=== PATIENT | female | born 2000 | race Caucasian/White ===

== ENCOUNTER 2019-04-11 15:36 | Emergency (ER) | payer BC, OTHER, SELFPAY ==
--- NOTE | ~2019-04-11 | XR_ITS ---
EXAMINATION: XR chest 2V 04/11/2019 17:00 INDICATION: Fever. Cough. Flu. PROCEDURE: 2 view chest COMPARISON: No prior studies for comparison. FINDINGS: The lungs are clear. The cardiomediastinal silhouette is within normal limits. There are no pleural effusions. There is no pneumothorax suspected. IMPRESSION: 1: NO ACUTE CARDIOPULMONARY DISEASE. Reviewed, dictated and finalized at location A. SALESPERSON
--- NOTE | ~2019-04-11 | CT_ITS ---
EXAMINATION: CTA chest PE protocol DATE: 04/11/2019 17:46 LUMBER MOVER INDICATION: Recurrent syncope TECHNIQUE: Computed tomographic angiography (CTA) of the chest was performed with 100 mL Omnipaque-35 0 intravenous contrast. The dose-length product was 387.47 mGy-cm. Maximum intensity projection 3D-re constructions of the aorta and other arteries were constructed by the technologist on a separate work station. Automated exposure control and iterative reconstruction technique were employed. COMPARISON: Chest dated 04/11/2019 FINDINGS: The study is technically limited due to timing of contrast bolus for evaluation of the segm ental and subsegmental pulmonary arteries. No large central pulmonary embolism is identified. In dalia tion there is streak artifact limiting evaluation of the right upper lobe pulmonary arteries. There i s residual thymic tissue. No endobronchial lesions. No pneumothorax. No focal airspace consolidation. No significant bone or joint abnormality. Visualized aspects of the upper abdomen are unremarkable. IMPRESSION: 1. No large central pulmonary embolism. Study limited for evaluation of segmental and subsegmental pu lmonary arteries due to timing of contrast bolus and streak artifact. 2: No acute airspace disease. Reviewed, dictated and finalized at location A. ER MOVER IMPRESSION: 1. No large central pulmonary embolism. Study limited for evaluation of segment al and subsegmental pulmonary arteries due to timing of contrast bolus and stre ak artifact. 2: No acute airspace disease.
[2019-04-11 15:40] VITALS: BP 117/66; PULSE 121; RESP 19; TEMP 38.1; O2SAT 100
--- NOTE | 2019-04-11 15:45 | PC.NURSE ---
During triage, patient had syncopal episode,Mother states that patient has recent MRI for syncopal episodes but doctors are unsure of why she is having them.
[2019-04-11 15:54] VITALS: PULSE 132
--- NOTE | 2019-04-11 15:56 | ECG_ITS ---
Measurements Intervals [place] Rate: 136 P: 24 IL: 148 QRS: -6 QRSD: 87 T: -4 QT: 331 QTc: 498 Interpretive Statements SINUS TACHYCARDIA NONSPECIFIC T-WAVE ABNORMALITY- INFERIOR LEADS ABNORMAL ECG Electronically Signed On 04-11-2019 21:07:26 UTILIZATION REVIEW RN by Phong Harvey D.O.
--- NOTE | 2019-04-11 16:24 | ED.URI ---
HPI - URI/Sore Throat General Chief Complaint: Syncope Stated Complaint: Cold sx, fever Time Seen by Provider: 04/11/19 16:26 Source: patient Mode of arrival: ambulatory Limitations: no limitations History of Present Illness HPI Narrative: A 18 y/o female presents to the ED with c/o syncope. Pt states that for the past year she has been randomly syncopizing 5-7 times a week. She notes that the syncopal episodes stopped for a couple of months, but they have become more frequent the past couple months. Pt adds that she has seen her PCP for the syncopal episodes and had an EKG and MRI done on 04/09/19, which both came back normal. She communicates that she has an appointment with Dr. Snider, a neurologist, in 2 weeks. Pt states that she has tunnel vision and blurry vision prior to her syncopal episodes. She notes that she normally can speak and is not confused after her syncopal episodes. Today the patient syncopized twice and decided to come to the ED. Pt reports dizziness, fever, cough, MCKENNA, and SOB, but denies CP, ABD pain, sore throat, otalgia, congestion, numbness, and lightheadedness. She was diagnosed with Influenza in the ED. Pt discontinued her control 1 week ago after her PCP advised her too. elicited complaint: other (Syncope) Onset (ago): year(s) (1) Consistency: intermittent Severity: similar to previous episodes Associated symptoms: fever, cough, shortness of breath and other (Dizziness, MCKENNA, blurry vision, tunnel vision) Related Data Home Medications Medication Instructions Recorded Confirmed metformin 500 mg PO DAILY 04/11/19 Allergies Allergy/AdvReac Type Severity Reaction Status Date / Time No Known Allergies Allergy Verified 04/11/19 15:47 Review of Systems Review of Systems: Narrative: CONSTITUTIONAL: Denies chills or sweats. Reports fever. EYES: Denies visual changes, redness, or discharge. ENT: Reports rhinorrhea and congestion. Reports blurry vision and tunnel vision. CARDIOVASCULAR: Denies chest pain, palpitations, or edema. RESPIRATORY: Reports cough and dyspnea. GASTROINTESTINAL: Denies abdominal pain, nausea, vomiting, or diarrhea. GENITOURINARY: Denies dysuria or hematuria. SKIN: Denies rash or itching. MUSCULOSKELETAL: Denies back pain, joint pain, or myalgia. NEUROLOGIC: Denies numbness, lightheadedness, or weakness. Reports headache, syncope, and dizziness. PMFSH Past Medical History Medical History (Updated 04/11/19 @ 18:46 by Lamar Ardon MD) Syncopal episodes Surgical History Surgical History (Updated 04/11/19 @ 17:02 by Sana Day) No pertinent past surgical history Social History Social History (Updated 04/11/19 @ 17:02 by Sana Day) Smoking status: Never smoker Gender identity (if verbalized by the patient): Female Exam Narrative: Exam Narrative: GENERAL: Well-appearing, well-nourished, and in no acute distress. HEAD: Normocephalic, atraumatic. EYES: PERRLA and EOMI. ENT: Nares clear, +rhinorrea, no epistaxis. Mucous membranes moist. NECK: Supple. CHEST: Clear to auscultation. No respiratory distress. HEART: Tachycardic with regular rhythm. No murmur heard. Normal peripheral pulses. ABDOMEN: Soft, nontender, nondistended, normal active bowel sounds. EXTREMITIES: Normal range of motion. No edema. SKIN: Warm, dry, no rash. NEURO: No focal deficits. Alert and oriented X3. Course Course Emergency Course: Patient presented for evaluation of cough and cold symptoms as well as fever and then recurrent episodes of syncope. Patient has a longstanding history of this, states that she has been worked up by her primary care provider has had a normal MRI, and is set to follow-up with a neurologist. At the time of our assessment, patient is neurologically intact without any neurological deficits. Patient is tachycardic, she has influenza and fever. Patient without urinary symptoms or abdominal pain. No vomiting. No prodromal symptoms prior to the syncope such as ch
[2019-04-11 16:58] LABS: Basophils Percent Auto 0.1 % (0.2-1.2); Eosinophils Percent Auto 0.1 % (0-4.4); Hematocrit 40.6 % (37.0-47.0); Hemoglobin 13.2 g/dL (12.0-15.0); Immature Granulocyte Absolute 0.02 K/mm3 (0.00-0.031); Immature Granulocyte Percent A 0.2 % (0-0.5); Lymphocytes Percent Auto 6.2 % (18.3-44.2); Mean Corpuscular HGB Conc 32.5 g/dl (32-36); Mean Platelet Volume 11.1 fl (7.4-10.4); Monocytes Absolute Auto 0.8 K/mm3 (0.1-0.6); Monocytes Percent Auto 10.2 % (2.6-8.5); Neutrophils Absolute Auto 6.8 K/mm3 (1.3-6.7); Neutrophils Percent Auto 83.2 % (45.5-73.1); Platelet Count Result 220 k/mm3 (150-375); Red Blood Count 4.72 M/mm3 (4.2-5.4); Red Cell Distribution Width 13.3 % (11.5-14.5); White Blood Count 8.1 K/mm3 (4.5-10.0)
[2019-04-11] MEDS: ACETAMINOPHEN 500 MG TABLET 1000 MG PO (17:04)
[2019-04-11] MEDS: ONDANSETRON INJ 4 MG/2 ML VIAL IV PUSH (17:05)
[2019-04-11] MEDS: SODIUM CHLORIDE 0.9% IV 1,000 ML 999 ML IV CONT ×2 (17:05)
[2019-04-11 17:06] LABS: INR 0.9; Prothrombin Time 12.3 Seconds (11.1-14.7)
[2019-04-11] MEDS: KETOROLAC 15 MG/ML VIAL (*BKC) IV PUSH (17:08)
[2019-04-11 17:13] LABS: Blood Urea Nitrogen 8 mg/dL (8-21); Calcium 9.7 mg/dL (8.9-10.7); Carbon Dioxide 23 mmol/L (22-30); Chloride 102 mmol/L (98-107); Estimated Glomerular Filt Rate > 60; Glucose 107 mg/dL (65-105); Potassium 3.8 mmol/L (3.4-5.0); Sodium 139 mmol/L (134-143)
[2019-04-11 17:23] LABS: Troponin I < 0.012 ng/mL (0.000-0.034)
[2019-04-11 18:38] VITALS: BP 124/63; PULSE 114; RESP 20; TEMP 37.4; O2SAT 100
== END 2019-04-11 19:03 | disposition home or self-care (01) ==
PROVIDERS: Emergency Provider Emergency Medicine
DX: J10.1 Influenza due to other identified influenza virus with other respiratory manifestations (principal); R55 Syncope and collapse; R00.0 Tachycardia, unspecified; R94.31 Abnormal electrocardiogram [ECG] [EKG]
CPT/HCPCS: 36415; 71046; 71275; 80048; 84484; 85025; 85610; 85730; 87804; 93005; 96361; 96374; 96375; 99284; A9270; J1885; J2405; J7030; Q9967

== ENCOUNTER 2020-04-16 21:35 | Observation (INO) | payer BC, OTHER, SELFPAY ==
[2020-04-16] VITALS (9 sets, daily range): BP systolic 92–124; BP diastolic 50–74; PULSE 77–120; BMI 33.5
--- NOTE | 2020-04-16 21:55 | PC.NURSE ---
Patient states she noted swelling of lower extremities.today. States went to [facility] for blood pressure check and blood pressure was 170's/80's
--- NOTE | 2020-04-16 22:16 | PC.NURSE ---
Dr. James notified of pt admission and assessment. Orders received.
--- NOTE | 2020-04-16 22:25 | PC.NURSE ---
Attempt to do SVE. Pt does not tolerate exam and unable to proceed. Pt places legs back together and tightens vaginal muscles. Contractions have decreased. Pt states she does not feel them.
[2020-04-16 23:46] LABS: Add Urine Microscopic? YES; Appearance Urine Cloudy (Clear); Bacteria Urine Trace /hpf; Bilirubin Urine Negative (Negative); Blood Urine Negative (Negative); Color Urine Yellow (Yellow); Glucose Urine UA Negative (Negative); Ketones Urine Negative (Negative); Leukocyte Esterase Ur 3+ LEU/UL (NEGATIVE); Mucus Urine Rare /lpf; Nitrate Urine Negative (Negative); Protein Urine Negative (Negative); Specific Grav Ur 1.008 (1.001-1.035); Squamous Epithelial Cell Urine Many /hpf (Few); Urobilinogen Urine Negative mg/dL (<2.0); WBC Urine 21-30 /hpf (0-3)
[2020-04-17] VITALS: BP 115/68; PULSE 91
[2020-04-17 00:30] VITALS: BP 135/64; PULSE 83
[2020-04-17 00:45] VITALS: BP 124/68; PULSE 86
--- NOTE | 2020-04-17 02:03 | OBADM ---
This patient, Pura Saenz, admitted to the OB room OB Post 113 for observation. Patient/family oriented to hospital policies and general routines including ID bracelet, bed and alarms, visiting hours, pain management, procedures, bathroom and other care routines, personal items, smoking policy, room service/diet, and visiting hours. Patient/Family are encouraged to report perceived risks to care and to ask questions if they do not understand what they are told or what they should do.
--- NOTE | 2020-04-29 08:53 | PM.OBTRLD ---
OB - Triage/Final Diagnosis Visit Information Comments/Additional reasons for admission: I have assessed the risk for this patient, Pura Saenz, and determined that she would benefit from observation care. Evaluation Laboratory results: Laboratory Tests 04/16/20 22:24 Urine Color Yellow Urine Appearance Cloudy H Urine pH 7.0 Ur Specific [place] 1.008 Urine Protein Negative Urine Glucose (UA) Negative Urine Ketones Negative Ur Blood (Man) Negative Urine Nitrate Negative Urine Bilirubin Negative Urine Urobilinogen Negative Ur Leukocyte Esterase 3+ H Urine RBC 6-10 H Urine WBC 21-30 H Ur Squamous Epith Cells Many H Urine Bacteria Trace Urine Mucus Rare Final Diagnosis (1) Headache: Code(s): R51.9 - Headache, unspecified Status: Acute
== END 2020-04-17 01:25 | disposition home or self-care (01) ==
PROVIDERS: Admitting Provider Obstetrics & Gynecology; Visit Provider Obstetrics & Gynecology
DX: O26.893 Other specified pregnancy related conditions, third trimester (principal); R51.9 Headache, unspecified; Z3A.35 35 weeks gestation of pregnancy
CPT/HCPCS: 81001; 87086; 87088; G0378; G0379

== ENCOUNTER 2020-12-26 17:50 | Emergency (ER) | payer BC, OTHER, SELFPAY ==
[2020-12-26 18:02] VITALS: BP 133/79; PULSE 87; RESP 16; TEMP 37; O2SAT 100
--- NOTE | 2020-12-26 18:18 | ED.URI ---
HPI - URI/Sore Throat General Chief Complaint: Upper Respiratory Infection Stated Complaint: Cough Source: patient and RN notes reviewed Limitations: no limitations History of Present Illness HPI Narrative: The vaccinated patient, a non-smoker/nondrinker, presents with cough. Patient states she has 1/2-week history of cough, 101.3 temperature, ear fullness and scratchy throat. She reportedly was Covid positive last month, and her taste and smell has started to come back. No wheezing/sneezing, sputum changes, vomiting/diarrhea, CP, SOB; Symptoms are mild slightly worse at night Related Data Home Medications Medication Instructions Recorded Confirmed Zoloft 12/26/20 Allergies Allergy/AdvReac Type Severity Reaction Status Date / Time No Known Allergies Allergy Verified 12/26/20 18:02 Review of Systems Review of Systems: General/Constitutional: No weight loss,REPORTS fever Eyes: N0: Redness,discharge Ears/Nose/Throat: No: Epistaxis,ear discharge Respiratory: Denies: Hemoptysis Gastrointestinal: No Vomiting, Bleeding-rectal Skin: No Lumps, eruption Neurologic: No Focal Weakness,Sz Hematologic: Denies: Petechiae/Purpura Psychiatric: No: Suicida ideationl All Other Systems: Reviewed and Negative PMFSH Past Medical History Medical History (Updated 12/26/20 @ 19:36 by Bentley Brown MD) Syncopal episodes Surgical History Surgical History (Updated 04/11/19 @ 17:02 by Sana Day) No pertinent past surgical history Social History Social History (Updated 04/11/19 @ 17:02 by Sana Day) Smoking status: Never smoker Gender identity (if verbalized by the patient): Female Comments At time of signature, agree with nursing past medical, surgical, social and family history. There is no relevant family history pertinent to the presenting complaint Exam Narrative: General Appearance: Well appearing, Well nourished EYE: PERRLA, Conjunctiva clear Ears: Auditory canal normal, TM normal Nose: Rhinorrhea, Mucousal erythema Mouth/Throat: MM moist, Uvula midline, Pharyngeal erythema Neck: Supple, No adenopathy Respiratory: No respiratory distress, Breath sounds equal, Clear to auscultation Cardiovascular: RRR, No JVD Musculoskeletal: Non tender, Normal strength Skin: Warm, Dry Neurological: A&O x3, CN II-XII intact Psychiatric: Normal mood, Normal affect Course Vital Signs Vital signs: Vital Signs Temperature 98.6 F 12/26/20 18:02 Pulse Rate 87 12/26/20 18:02 Respiratory Rate 16 12/26/20 18:02 Blood Pressure 133/79 12/26/20 18:02 Pulse Oximetry 100 12/26/20 18:02 Temperature 98.6 F 12/26/20 18:02 Pulse Rate 87 12/26/20 18:02 Respiratory Rate 16 12/26/20 18:02 Blood Pressure 133/79 12/26/20 18:02 Pulse Oximetry 100 12/26/20 18:02 Discharge Plan Discharge Clinical Impression: Fever Qualifiers: Fever type: unspecified Qualified Code(s): R50.9 - Fever, unspecified Patient Disposition: Home, Self-Care Condition: Stable Instructions: Antibiotic Form, Acute Bronchitis (ED) Prescriptions: New benzonatate 100 mg capsule 100 mg PO TID PRN (Reason: cough) Qty: 20 RF: 2 azithromycin 250 mg tablet See Rx Instructions .ROUTE .COMPLEX Qty: 6 RF: 0 codeine-guaifenesin 10-100 mg/5 mL liquid 7.5 ml PO Q6H PRN (Reason: cough) Qty: 118 RF: 0 No Action Zoloft RF: 0 Follow-up/Referrals: PHYSICIAN NOT ON STAFF,NONSTAFF [Primary Care Provider] -
== END 2020-12-26 18:33 | disposition home or self-care (01) ==
PROVIDERS: Emergency Provider Emergency Medicine
DX: R50.9 Fever, unspecified (principal)
CPT/HCPCS: 99213; G0463